=== PATIENT | male | born 1975 ===

== ENCOUNTER 2018-03-17 08:42 | Day surgery (SDC) | payer OTHER ==
[2018-03-17] VITALS (8 sets, daily range): BP systolic 114–127; BP diastolic 74–80
[~2018-03-17] VITALS: Ht 182.9 cm; Wt 84.8 kg
--- NOTE | 2018-03-17 06:47 | Anethesia Preoperative Eval ---
Anesthesia Pre-op PMH/ROS General Date of Evaluation: Mar 17, 2018 Time of Evaluation: 06:45 Anesthesiologist: ernestina ASA Score: ASA 3 Mallampati Score Class I : Soft palate, uvula, fauces, pillars visible Class II: Soft palate, uvula, fauces visible Class III: Soft palate, base of uvula visible Class IV: Only hard plate visible Mallampati Classification: Class I Surgeon: geni Diagnosis: gerd Surgical Procedure: egd Anesthesia History: none Social History: smoking, alcohol use Family History: no anesthesia problems Allergies: Coded Allergies: PENICILLINS (Verified Allergy, Unknown, unknown, 12/11/15) Medications: see eMAR Past Medical History Cardiovascular: Reports: HTN Gastrointestinal/Genitourinary: Reports: GERD Neurologic/Psychiatric: Reports: depression/anxiety Endocrine: Reports: DM, other - hyperthyroidism Anesthesia Pre-op Phys. Exam Physician Exam Constitutional: NAD Neurologic: CN 2-12 intact Cardiovascular: RRR Respiratory: CTA Gastrointestinal: S/NT/ND Airway Exam Mallampati Score: Class II MO: full Neck: supple TMD: 2fb ROM: full Teeth: intact Anesthesia Pre-op A/P Risk Assessment & Plan Assessment: asa3 Plan: mac Status Change Before Surgery: No Pre-Antibiotics Drug: Janet Blanchard MD Mar 17, 2018 06:47
[~2018-03-17 08:42] MED LIST: Atropine Inj 1mg/10ml Syr IV PRN; DiphenhydrAMINE 50mg/ml Inj IVP PRN; IBUPROFEN600 MG ORAL; LR 1000ml 1,000 ML IVLG SCH; Midazolam 2mg/2ml Inj IVP PRN; NKM; NORCO 5-325 TA1 EACH ORAL; UNOBMED; fentaNYL 100 mcg/2 mL IV PRN
--- NOTE | 2018-03-17 09:54 | Short Stay Surgery H&P ---
History of Present Illness History of Present Illness Chief Complaint see typed H&P HPI Uriah Quintana is a 43 year old male who was admitted on for Dysphagia Patient History Allergies: Coded Allergies: PENICILLINS (Verified Allergy, Unknown, unknown, 12/11/15) Medication History Scheduled No Known Medications* (NKM - No Known Medications*), 0 ., (Reported) Discontinued Medications Hydrocodone Bit/Acetaminophen 5-325* (Edmonson 5-325*), 1 TAB ORAL Q6H PRN for For Pain Discontinued Reason: Pt stopped taking med Ibuprofen* (Motrin*), 600 MG ORAL THREE TIMES A DAY Discontinued Reason: Pt stopped taking med Physical Exam Vital Signs Last Vital Signs Date Time Temp Pulse Resp B/P (MAP) Pulse Ox O2 Delivery O2 Flow Rate FiO2 03/17/18 09:21 98.8 57 18 122/78 (93) 96 98.8 03/17/18 09:15 Room Air Plan Attestation Are the patient's medical conditions optimized for surgery? Gabby Guallpa MD Mar 17, 2018 09:54
--- NOTE | 2018-03-17 09:54 | Pre-Procedure Note/Attestation ---
Pre-Procedure Note/Attestation Complete Prior to Procedure Planned Procedure: not applicable Procedure Narrative: EGD Indications for Procedure Pre-Operative Diagnosis: GERD, dysphagia Attestation I attest that I discussed the nature of the procedure; its benefits; risks and complications; and alternatives (and the risks and benefits of such alternatives ), prior to the procedure, with the patient (or the patient's legal charter representative). I attest that, if there was a reasonable possibility of needing a blood transfusion, the patient (or the patient's legal charter representative) was given the [facility] standardized written summary, pursuant to the [place] Blood Safety Act ([place] Health and Safety Code # 1645, as amended). I attest that I re-evaluated the patient just prior to the surgery and that there has been no change in the patient's H&P, except as documented below: Gabby Guallpa MD Mar 17, 2018 09:54
[2018-03-17] MEDS ORDERED: Lidocaine 1% MPF 10mg/ml 5ml ONE (10:00)
[2018-03-17] MEDS ORDERED: LR 1000ml ONE (10:00)
[2018-03-17] MEDS ORDERED: Propofol 200mg/20ml IV ONE (10:00)
--- NOTE | 2018-03-17 11:28 | Immediate Post-Op Evaluation ---
Immediate Post-Op Evalulation Immediate Post-Op Evalulation Procedure: egd w/bx Date of Evaluation: Mar 17, 2018 Time of Evaluation: 10:40 IV Fluids: 550ml lr Blood Products: none Estimated Blood Loss: negligible Blood Pressure Systolic: 117 Blood Pressure Diastolic: 78 Pulse Rate: 60 Respiratory Rate: 18 O2 Sat by Pulse Oximetry: 97 Temperature (Fahrenheit): 97.3 Pain Score (1-10): 0 Nausea: No Vomiting: No Complications none Patient Status: awake, reacts, patent Hydration Status: adequate Drug: Janet Blanchard MD Mar 17, 2018 11:28
--- NOTE | 2018-03-17 11:29 | 48 Hour Post Anesthesia Eval ---
Post Anesthesia Evaluation Procedure: egd w/bx Date of Evaluation: Mar 17, 2018 Time of Evaluation: 10:45 Blood Pressure Systolic: 115 0: 78 Pulse Rate: 71 Respiratory Rate: 18 Temperature (Fahrenheit): 97.3 O2 Sat by Pulse Oximetry: 99 Airway: patent Nausea: No Vomiting: No Pain Intensity: 0 Hydration Status: adequate Cardiopulmonary Status: stable Mental Status/LOC: patient returned to baseline Post-Anesthesia Complications: none Follow-up care needed: N/A Janet Echeverria MD Mar 17, 2018 11:29
--- NOTE | 2018-03-17 11:54 | Endoscopy Procedure Note ---
Endoscopy Procedure Note General Indication for Procedure: GERD, bloat, dysphagia Procedures Performed: EGD Operative Findings/Diagnosis: Gerd, ulcer, esoph plaque Specimen: yes Pt Tolerated Procedure Well: Yes Estimated Blood Loss: none Anesthesia Anesthesiologist: Tejas Block Anesthesia: MAC Medications Medication Given: see anesthesia record Inserted Devices Implant(s) used?: No GI Core Measures 50 yrs or older w/o bx or poly: Not Applicable 10yrs. F/U not recommended: Not Applicable If not recommended, why?: Gabby Guallpa MD Mar 17, 2018 11:54
--- NOTE | 2018-03-17 11:56 | Brief Operative Note ---
Immediate Post Operative Note Operative Note Chief Complaint: GERD, bloating, dysphagia Pre-op Diagnosis: GERD, dysphagia Procedure: GED/Bx Post-op Diagnosis: GERD, esoph ulcer and plaque Post-op Diagnosis: same as pre-op Surgeon: geni Anesthesiologist: parag gonzalez Anesthesia: MAC, moderate sedation Specimen: yes Complications: none Condition: stable Fluids: Recorded Estimated Blood Loss: none Drains: none Implant(s) used?: No Gabby Guallpa MD Mar 17, 2018 11:56
--- NOTE | 2018-03-18 20:30 | Operative Note - Dictated ---
DATE OF OPERATION: 03/17/2018 PROCEDURE: Upper gastrointestinal endoscopy with biopsy. SURGEON: Gabby Guallpa M.D. ANESTHESIA: Please see the separate anesthesiologist notes for details. PREOPERATIVE DIAGNOSIS: gastroesophageal reflux, bloating and dysphagia. POST-ENDOSCOPIC DIAGNOSES: 1. Gastroesophageal reflux disease with reflux related ulceration in the lower esophagus. 2. An ill-defined flat white esophageal plaque in the mid esophagus, of doubtful significance status biopsy. 3. Status post random biopsy of the mid esophagus as well as antrum and duodenum. RECOMMENDATIONS: 1. We will follow up biopsy results. 2. Acid-deisi. 3. Reflux precautions. 4. Outpatient followup. Gabby Guallpa M.D. DR: BARRERA JOB#: [id number] CC: ZACH
--- NOTE | 2018-03-25 08:45 | Operative Note - Dictated ---
DATE OF OPERATION: 03/17/2018 GASTROENTEROLOGY PROCEDURE REPORT PROCEDURE: Upper gastrointestinal endoscopy with biopsy. SURGEON: Gabby Guallpa M.D. ANESTHESIA: Please see the separate anesthesiologist notes for details. PRE-ENDOSCOPIC DIAGNOSIS: Gastroesophageal reflux, bloating, and dysphagia. POST-ENDOSCOPIC DIAGNOSES: 1. Gastroesophageal reflux disease with reflux-related ulceration in the lower esophagus. 2. An ill-defined flat white esophageal plaque in the mid esophagus, of doubtful significance, status post biopsy 3. Status post random biopsy of the mid esophagus as well as antrum and duodenum. DESCRIPTION OF PROCEDURE: The procedure, its risks, indications, alternatives, and possible complications including, but not limited to bleeding, infection, perforation, , and anesthesia complications were explained and informed consent was obtained. The patient was then sedated in the left lateral decubitus position and a diagnostic upper endoscope was introduced into the oropharynx and advanced to the duodenum. The endoscope was then gradually withdrawn and the mucosa examined carefully. Examination of the upper gastrointestinal tract revealed findings as listed above. Biopsies were obtained for the mid esophagus as well as the antrum and the duodenum. The endoscope was removed. The patient was sent to recovery in good condition. COMPLICATIONS: None. RECOMMENDATIONS: 1. We will follow up biopsy results. 2. Acid-deisi. 3. Reflux precautions. 4. Outpatient followup. Gabby Guallpa M.D. DR: GRISELDA JOB#: [id number] CC: ZACH
== END 2018-03-17 11:15 | disposition home or self-care (01) ==
LOC: GAS 08:42
DX: K22.10 Ulcer of esophagus without bleeding (principal); K21.9 Gastro-esophageal reflux disease without esophagitis; L83 Acanthosis nigricans; I10 Essential (primary) hypertension; E11.9 Type 2 diabetes mellitus without complications; E05.00 Thyrotoxicosis with diffuse goiter without thyrotoxic crisis or storm; F41.9 Anxiety disorder, unspecified; F32.9 Major depressive disorder, single episode, unspecified; Z86.010 Personal history of colon polyps; Z88.0 Allergy status to penicillin; Z88.8 Allergy status to other drugs, medicaments and biological substances
CPT/HCPCS: 43239; J2704; 94003; 94150